=== PATIENT | female | born 1980 | race Caucasian/White ===

== ENCOUNTER 2016-06-02 00:28 | Emergency (ER) | payer SELFPAY ==
[~2016-06-02 00:28] MED LIST: DOXYCYCLINE HY100 M3 PO; GUAIFEN-CODEIN120 ML PO; IBUPROFEN; IBUPROFEN200 M3 PO; NAPROSYN500 M1 PO; NO HOME MEDICATION XX; PYRIDIUM200 M2 PO; ZITHROMAX250 M1 PO
== END 2016-06-02 01:00 | disposition left against medical advice (07) ==
LOC: EDMED 00:28
DX: R10.2 Pelvic and perineal pain (principal); Z53.21 Procedure and treatment not carried out due to patient leaving prior to being seen by health care provider